=== PATIENT | female | born 1965 | race Caucasian/White ===

== ENCOUNTER 2022-11-20 17:23 | Emergency (ER) | payer MEDICARE, MEDICAID, SELFPAY ==
[2022-11-20 17:27] VITALS: BP 147/81; PULSE 73; RESP 20; TEMP 36.7; O2SAT 98; BMI 35.0
--- NOTE | 2022-11-20 17:53 | ED_ITS ---
HPI - Dizziness General Chief Complaint: Dizziness/Vertigo Stated Complaint: Fatigue, dizziness Time Seen by Provider: 11/20/22 17:35 History of Present Illness HPI Narrative: This 57-year-old female comes in reporting diffuse symptoms of dizziness over the past day or 2. She states that it is not specifically vertigo but feeling lightheadedness that she says is kind of a heavy feeling. So maybe it is a heavy headedness. She does arrive with normal vital signs. She has been taking Augmentin for a diagnosis of parotitis. She went to the clinic and reported swelling over left parotid gland. She states that she has had this several times in the past and was using sour jeevan to help express the flow of juices from the parotid gland. She has not had any imaging and did not have any fevers. She states that she is feeling better with regard to her parotid gland. She also reports taking 6 16 oz beers daily. She had her last drink about an hour and half prior to arrival. He does not report any symptoms of withdrawal and does not appear intoxicated. She knows that this is excessive and is planning to cut back. Related Data Home Medications Medication Instructions Recorded Confirmed albuterol sulfate 90 mcg/actuation inhalation 03/23/22 11/16/22 aerosol inhaler (Ventolin HFA) diazepam 5 mg tablet 5 mg PO BID 03/23/22 11/16/22 fluticasone 113 mcg-salmeterol 14 inh inhalation 03/23/22 11/16/22 mcg/actuation breath activated powdr risperidone 1 mg tablet 1 mg PO DAILY 03/23/22 11/16/22 risperidone 4 mg tablet 4 mg PO DAILY 03/23/22 11/16/22 hydroxyzine HCl 25 mg tablet 25 mg PO BID 11/20/22 11/20/22 Previous Rx's Medication Instructions Recorded amoxicillin 875 mg-potassium 1 tab PO Q12H 7 days #14 tabs 11/16/22 clavulanate 125 mg tablet Allergies Allergy/AdvReac Type Severity Reaction Status Date / Time contact metal agent Allergy Intermediate Rash Verified 11/20/22 17:31 Review of Systems Status of ROS: Reports: 10 or more systems reviewed and unremarkable except as noted in History and below Narrative: Constitutional: No fevers, no weight gain or loss. Eyes: No discharge. No vision changes. HENT: No congestion, no sore throat, no ear pain. Left parotid swelling has improved recently. Cardiovascular: No chest pain, no palpitations. Respiratory: No shortness of breath, no wheezes, no cough. Gastrointestinal: No abdominal pain, no vomiting, no diarrhea. Genitourinary: No dysuria, no hematuria. Musculoskeletal: Normal range of motion. Skin: No rashes, no pruritis. Neurological: No weakness, sensory change, speech change. Endo/Heme/Allergies: No bruising or bleeding. No polydipsia. Pysch: no suicidality, no anxiety, no insomnia. All other systems reviewed and are negative. [facility] Medical History (Updated 11/20/22 @ 18:50 by Dalton Rizzo MD) Parotitis ?K11.20 - Sialoadenitis, unspecified (ICD-10) Social History Smoking Status: Current every day smoker Exam Narrative: Exam Narrative: Constitutional: Well-developed, well-nourished, no acute distress. HEENT: Normocephalic, atraumatic. No swelling or hypertrophy of the left parotid gland. Neck: Normal range of motion. Nontender. Supple. Heart: Regular. No murmurs. Normal rate. Intact distal pulses. Lungs: Clear to auscultation. No chest discomfort. No wheezes, rhonchi, or rales. Abdomen: Normal bowel sounds. Nontender. No rebound tenderness. Genitalia: Deferred. Back: No midline tenderness. Normal range of motion. Extremities: Normal range of motion. No injury. Skin: Intact. No rash. Warm. No erythema or pallor. Neurologic: No altered sensation. No weakness. Alert and oriented. Psychiatric: No suicidality. No anxiety or depression. No insomnia. Nursing notes and vitals signs are reviewed. Const: Vital Signs, click to edit/add: Vital Signs - 24 hr 11/20/22 17:27 Temperature 98.1 F Pulse Rate [Pulse Oximeter] 73 Respiratory Rate 20 Blood Pressure [Ri ght Upper Arm] 147/81 H Pulse Oximetry 98 Oxygen Delivery Me thod Room Air Course Vital Signs Vital signs: Initial Vital Signs Temperature 98.1 F 11/20/22 17:27 Temperature Source Oral 11/20/22 17:27 Pulse Rate 73 11/20/22 17:27 Pulse Rhythm Regular 11/20/22 17:27 Respiratory Rate 20 11/20/22 17:27 Blood Pressure 147/81 H 11/20/22 17:27 Blood Pressure Mean 103 11/20/22 17:27 Blood Pressure Position Sitting 11/20/22 17:27 Pulse Oximetry 98 11/20/22 17:27 Oxygen Delivery Method Room Air 11/20/22 17:27 Vital Signs Temperature 98.1 F 11/20/22 17:27 Pulse Rate 73 11/20/22 17:27 Respiratory Rate 20 11/20/22 17:27 Blood Pressure 147/81 H 11/20/22 17:27 Pulse Oximetry 98 11/20/22 17:27 Oxygen Delivery Method Room Air 11/20/22 17:27 Temperature 98.1 F 11/20/22 17:27 Pulse Rate 73 11/20/22 17:27 Respiratory Rate 20 11/20/22 17:27 Blood Pressure 147/81 H 11/20/22 17:27 Pulse Oximetry 98 11/20/22 17:27 Oxygen Delivery Method Room Air 11/20/22 17:27 MDM - Dizziness MDM Narrative Medical decision making narrative: This patient comes in reporting a heavy feeling in her head over the past few days. She has been taking Augmentin actually for 4 days for a presumed parotid infection. She states that she is feeling better in that regard. She arrives with normal vital signs. Lab results are obtained and show reassuring findings also. She was concerned that her glucose might be high but it returns at 104 in a nonfasting state. Her white count is at around 11 which she states is typical for her. I stated that her symptoms may be adverse effects from taking Augmentin. Additionally she is drinking more alcohol than she should. I advised her to discontinue the Augmentin. I also recommended that she decrease her alcohol intake. She is okay to be discharged home. Lab Data Labs: Lab Results 11/20/22 Range/Units 18:02 WBC 11.16 H (4.50-11.00) K/uL RBC 4.64 (4.00-5.20) m/uL Hgb 14.9 (12.0-16.0) gm/dL Hct 42.3 (33.0-51.0) % MCV 91 (80-100) fL MCH 32 (26-34) pg MCHC 35 (32-36) gm/dL RDW Coeff of Misael 12.4 (11.5-15.5) % Plt Count 307 (140-440) K/uL Neut % (Auto) 55.2 (42.0-72.0) % Lymph % (Auto) 35.0 (20-44) % Gregg % (Auto) 7.9 (0.0-11.0) % Eos % (Auto) 1.4 (0.0-7.0) % Baso % (Auto) 0.3 (0.0-3.0) % Neut # (Auto) 6.20 (1.7-7.0) K/uL Lymph # (Auto) 3.90 H (0.90-2.90) K/uL Gregg # (Auto) 0.90 (0.00-0.90) K/UL Eos # (Auto) 0.20 (0.00-0.50) K/uL Baso # (Auto) 0.00 (0.00-0.30) K/uL Abs Immat Gran (auto) 0.00 (0.00-0.30) K/uL Imm/Tot Granulo (auto) 0.2 % Sodium 134 L (135-149) mmol/L Potassium 3.6 (3.6-5.1) mmol/L Chloride 101 (96-114) mmol/L Carbon Dioxide 24 (20-32) mmol/L Anion Gap 9 (7-15) mEq/L BUN 10 (7-30) mg/dL Creatinine 0.6 (0.5-1.5) mg/dL Estimated Creat Clear 118.41 Estimated GFR 106 ml/min Glucose 104 (60-115) mg/dL Calcium 10.0 (8.4-10.6) mg/dL ECG Data Attestation: I personally reviewed and interpreted this ECG as follows: Interpretation: Normal sinus rhythm. Rate is 68 beats per minute. There are no ST or T-wave abnormalities. Discharge Plan Discharge Clinical Impression: Adverse reaction to drug Patient Disposition: Home, Self-Care Condition: Stable Additional Instructions: Okay to discontinue Augmentin. Recommended to decrease alcohol intake also. Follow up with MD or return if worsening. Prescriptions: No Action diazepam 5 mg tablet 5 mg PO BID risperidone 4 mg tablet 4 mg PO DAILY risperidone 1 mg tablet 1 mg PO DAILY fluticasone propion-salmeterol 113-14 mcg/actuation aerosol powdr breath activated inhalation albuterol sulfate [Ventolin HFA] 90 mcg/actuation HFA aerosol inhaler inhalation amoxicillin-pot clavulanate 875-125 mg tablet 1 tab PO Q12H 7 Days Qty: 14 0RF hydroxyzine HCl 25 mg tablet 25 mg PO BID Follow Up/Referrals: Shazia Kern DO [Primary Care Provider] - Stand Alone Forms: [facility] Info Instructions
[2022-11-20 18:08] LABS: Basophils Percent Auto 0.3 % (0.0-3.0); Eosinophils Percent Auto 1.4 % (0.0-7.0); Hematocrit 42.3 % (33.0-51.0); Hemoglobin* 14.9 gm/dL (12.0-16.0); Immature Granulocytes Pct Auto 0.2 %; Mean Corpuscular HGB Conc 35 gm/dL (32-36); Mean Corpuscular Hemoglobin 32 pg (26-34); Mean Corpuscular Volume 91 fL (80-100); Monocytes Percent Auto 7.9 % (0.0-11.0); Neutrophils Percent Auto 55.2 % (42.0-72.0); Platelet Count* 307 K/uL (140-440); RDW Coefficient of Variation % 12.4 % (11.5-15.5); Red Blood Count 4.64 m/uL (4.00-5.20); White Blood Count* 11.16 K/uL (4.50-11.00)
[2022-11-20 18:11] LABS: Slide Review Reflex No
[2022-11-20 18:21] LABS: Chloride* 101 mmol/L (96-114); Potassium* 3.6 mmol/L (3.6-5.1); Sodium* 134 mmol/L (135-149)
[2022-11-20 18:24] LABS: Anion Gap 9 mEq/L (7-15); Blood Urea Nitrogen* 10 mg/dL (7-30); Carbon Dioxide* 24 mmol/L (20-32); Creatinine* 0.6 mg/dL (0.5-1.5); Est. Creatinine Clearance* 118.41; Estimated Glomerular Filt Rate 106 ml/min
[2022-11-20 18:25] LABS: Glucose* 104 mg/dL (60-115)
== END 2022-11-20 18:55 | disposition home or self-care (01) ==
PROVIDERS: Emergency Provider Emergency Medicine Emergency Medical Services; PCP Family Medicine
DX: R42 Dizziness and giddiness (principal); T36.0X5A Adverse effect of penicillins, initial encounter; T36.1X5A Adverse effect of cephalosporins and other beta-lactam antibiotics, initial encounter
CPT/HCPCS: 36415; 80048; 85025; 93005; 99284

== ENCOUNTER 2022-12-08 17:18 | Outpatient (CLI) | payer MEDICARE, MEDICAID, SELFPAY | END 2022-12-08 17:19 | disposition home or self-care (01) | LOC: NFLDREF 12-09 22:35 | PROVIDERS: PCP Family Medicine; Referring Provider Family Medicine; Visit Provider Physician Assistant | DX: R10.9 Unspecified abdominal pain (principal) | CPT/HCPCS: 87086 ==

== ENCOUNTER 2023-06-11 09:29 | Emergency (ER) | payer MEDICARE, MEDICAID, SELFPAY ==
[2023-06-11 09:45] VITALS: BP 113/76; PULSE 74; RESP 16; TEMP 36.6; O2SAT 98; BMI 35.6
--- NOTE | 2023-06-11 10:12 | XR_ITS ---
Patient: KATHERINE NUNEZ Facility:?[facility] Patient ID:?[id number] Site Patient ID:?[id number]. Site :?[id number] Study:?XRay-Chest Portable-06/11/2023 10:31:41 AM Ordering Physician:?Sekou Naranjo Final Report: INDICATION: Chest pain TECHNIQUE: Chest 1 views. COMPARISON: None. FINDINGS: Cardiovascular and mediastinum: Heart size and vasculature are normal in caliber and appearance. Lungs and pleural spaces: Lungs are clear. No sign of infiltrate. No sign of pleural effusion. No pneumothorax. Bones and soft tissues: No significant findings. IMPRESSION: No evidence of acute cardiopulmonary process. Dictated by Torito Larios MD @ 06/11/2023 10:38:35 AM Signed by:?Torito Larios MD @06/11/2023 10:38:35 AM (Electronic Signature)
[2023-06-11 10:38] LABS: Basophils Absolute Auto 0.03 K/uL (0.00-0.30); Basophils Percent Auto 0.3 % (0.0-3.0); Eosinophils Absolute Auto 0.12 K/uL (0.00-0.50); Eosinophils Percent Auto 1.3 % (0.0-7.0); Hematocrit 44.5 % (33.0-51.0); Hemoglobin* 15.2 gm/dL (12.0-16.0); Immature Granulocytes Abs Auto 0.02 K/uL (0.00-0.30); Immature Granulocytes Pct Auto 0.2 %; Lymphocytes Absolute Auto 2.95 K/uL (0.90-2.90); Lymphocytes Percent Auto 32.2 % (20-44); Mean Corpuscular HGB Conc 34 gm/dL (32-36); Mean Corpuscular Hemoglobin 31 pg (26-34); Mean Corpuscular Volume 91 fL (80-100); Monocytes Percent Auto 5.6 % (0.0-11.0); Neutrophils Absolute Auto 5.54 K/uL (1.7-7.0); Neutrophils Percent Auto 60.4 % (42.0-72.0); Platelet Count* 248 K/uL (140-440); RDW Coefficient of Variation % 12.5 % (11.5-15.5); Red Blood Count 4.87 m/uL (4.00-5.20); White Blood Count* 9.17 K/uL (4.50-11.00)
--- NOTE | 2023-06-11 10:42 | ED_ITS ---
HPI - Chest Pain General Chief Complaint: Chest Pain Stated Complaint: Chest pain, short of breath Time Seen by Provider: 06/11/23 10:06 History of Present Illness HPI narrative: Patient is a 57-year-old woman who comes in with a 1 hour history of chest pressure and fullness. She does smoke. She was able to belch upon arriving at the hospital and her symptoms resolved. Pressures felt in the midsternum with no diaphoresis nausea vomiting fevers or chills. Patient has had minimal s hortness of breath. Patient has had no other recent symptoms and otherwise feels like she has been feeling fairly well. EKG upon arrival shows questionable old myocardial infarction but no acute ST or T-wave changes upon my review. Related Data Home Medications Medication Instructions Recorded Confirmed albuterol sulfate 90 mcg/actuation inhalation 03/23/22 02/20/23 aerosol inhaler (Ventolin HFA) diazepam 5 mg tablet 5 mg PO BID 03/23/22 02/20/23 fluticasone 113 mcg-salmeterol 14 inh inhalation 03/23/22 02/20/23 mcg/actuation breath activated powdr risperidone 1 mg tablet 1 mg PO DAILY 03/23/22 02/20/23 risperidone 4 mg tablet 4 mg PO DAILY 03/23/22 02/20/23 hydroxyzine HCl 25 mg tablet 25 mg PO BID 11/20/22 02/20/23 lamotrigine 100 mg tablet 100 mg PO DAILY 06/11/23 06/11/23 Allergies Allergy/AdvReac Type Severity Reaction Status Date / Time contact metal agent Allergy Intermediate Rash Verified 02/20/23 09:40 aripiprazole [From Abilify] Allergy Verified 02/20/23 09:40 olanzapine [From Zyprexa] Allergy Verified 02/20/23 09:40 quetiapine [From Seroquel] Allergy Verified 02/20/23 09:40 Review of Systems Status of ROS Reports: 10 or more systems reviewed and unremarkable except as noted in History and below [facility] Medical History Parotitis ?K11.20 - Sialoadenitis, unspecified (ICD-10) Social History Smoking Status: Current every day smoker Exam Narrative Exam Narrative: EXAM GENERAL: Patient appears comfortable and well. EYES: No scleral icterus. LYMPH: No supraclavicular or cervical lymphadenopathy. SKIN: Visible skin seen during exam normal or with benign process only. EXT: No dependent lower extremity pedal edema. HEART: Regular rate and rhythm with no murmurs, rubs, or gallops. LUNGS: Clear to auscultation bilaterally with no crackles or wheezes. ABD: Soft, non tender, non distended. PSYCH: Good eye contact, speech is not pressured. Const Vital Signs, click to edit/add: Vital Signs - 24 hr 06/11/23 09:45 Temperature 97.9 F Pulse Rate [Pulse Oximeter] 74 Respiratory Rate 16 Blood Pressure [Right Upper Arm] 113/76 Pulse Oximetry 98 Oxygen Delivery Method Room Air Course Course ED Course: Patient seen examined. Troponin now and in 90 minutes ordered. CBC basic metabolic panel chest x-ray D-dimer pending. Vital Signs Vital signs: Initial Vital Signs Temperature 97.9 F 06/11/23 09:45 Temperature Source Temporal Artery Scan 06/11/23 09:45 Pulse Rate 74 06/11/23 09:45 Respiratory Rate 16 06/11/23 09:45 Blood Pressure 113/76 06/11/23 09:45 Blood Pressure Mean 88 06/11/23 09:45 Blood Pressure Position Sitting 06/11/23 09:45 Pulse Oximetry 98 06/11/23 09:45 Oxygen Delivery Method Room Air 06/11/23 09:45 Vital Signs Temperature 97.9 F 06/11/23 09:45 Pulse Rate 74 06/11/23 09:45 Respiratory Rate 16 06/11/23 09:45 Blood Pressure 113/76 06/11/23 09:45 Pulse Oximetry 98 06/11/23 09:45 Oxygen Delivery Method Room Air 06/11/23 09:45 Temperature 97.9 F 06/11/23 09:45 Pulse Rate 74 06/11/23 09:45 Respiratory Rate 16 06/11/23 09:45 Blood Pressure 113/76 06/11/23 09:45 Pulse Oximetry 98 06/11/23 09:45 Oxygen Delivery Method Room Air 06/11/23 09:45 MDM - Chest Pain MDM Narrative Medical decision making narrative: Patient is a 57-year-old woman who does have some cardiovascular risk factors who presents with chest pain clearing with a belch. She had no acute ST or T- wave changes on her EKG upon her arrival upon my review. A chest x-ray troponin x2 D-dimer electrolytes blood count are all normal. We did observe her for proximally 2 hours in the emergency room she had no signs of ectopy or return of symptoms. At this time I do believe she can be safely return to home. Differential diagnosis includes but not limited to unstable angina acute myocardial infarction aortic dissection pneumothorax gas pulmonary embolism. Lab Data Labs: Lab Results 06/11/23 Range/Units 10:18 WBC 9.17 (4.50-11.00) K/uL RBC 4.87 (4.00-5.20) m/uL Hgb 15.2 (12.0-16.0) gm/dL Hct 44.5 (33.0-51.0) % MCV 91 (80-100) fL MCH 31 (26-34) pg MCHC 34 (32-36) gm/dL RDW Coeff of Misael 12.5 (11.5-15.5) % Plt Count 248 (140-440) K/uL Neut % (Auto) 60.4 (42.0-72.0) % Lymph % (Auto) 32.2 (20-44) % Roane % (Auto) 5.6 (0.0-11.0) % Eos % (Auto) 1.3 (0.0-7.0) % Baso % (Auto) 0.3 (0.0-3.0) % Neut # (Auto) 5.54 (1.7-7.0) K/uL Lymph # (Auto) 2.95 H (0.90-2.90) K/uL Roane # (Auto) 0.50 (0.00-0.90) K/UL Eos # (Auto) 0.12 (0.00-0.50) K/uL Baso # (Auto) 0.03 (0.00-0.30) K/uL Abs Immat Gran (auto) 0.02 (0.00-0.30) K/uL Imm/Tot Granulo (auto) 0.2 % D-Dimer Quant (PE/DVT) 0.14 (0.00-0.50) ug/ml Sodium 136 (135-149) mmol/L Potassium 4.2 (3.6-5.1) mmol/L Chloride 106 (96-114) mmol/L Carbon Dioxide 26 (20-32) mmol/L Anion Gap 4 L (7-15) mEq/L BUN 9 (7-30) mg/dL Creatinine 0.6 (0.5-1.5) mg/dL Estimated Creat Clear 118.41 Estimated GFR 106 ml/min Glucose 107 (60-115) mg/dL Calcium 9.7 (8.4-10.6) mg/dL Total Bilirubin 0.5 (0.1-1.5) mg/dL AST 21 (12-35) U/L ALT 23 (4-35) U/L Alkaline Phosphatase 76 (40-150) U/L Troponin I < 0.01 L (0.01-0.04) ng/mL Total Protein 7.9 (6.0-8.3) g/dL Albumin 4.5 (3.3-5.0) g/dL Discharge Plan Discharge Clinical Impression: Chest pain Patient Disposition: Home, Self-Care Condition: Stable Instructions: Chest Pain (ED) Activity Level: No Restrictions Discharge Diet: Regular Prescriptions: No Action diazepam 5 mg tablet 5 mg PO BID risperidone 4 mg tablet 4 mg PO DAILY risperidone 1 mg tablet 1 mg PO DAILY fluticasone propion-salmeterol 113-14 mcg/actuation aerosol powdr breath activated inhalation albuterol sulfate [Ventolin HFA] 90 mcg/actuation HFA aerosol inhaler inhalation hydroxyzine HCl 25 mg tablet 25 mg PO BID lamotrigine 100 mg tablet 100 mg PO DAILY Follow Up/Referrals: Kimmy Francois PA-C [Primary Care Provider] - Stand Alone Forms: [facility] Info Instructions
[2023-06-11 10:48] LABS: Slide Review Reflex No
[2023-06-11 10:50] LABS: Chloride* 106 mmol/L (96-114)
[2023-06-11 10:51] LABS: Albumin* 4.5 g/dL (3.3-5.0); Potassium* 4.2 mmol/L (3.6-5.1); Sodium* 136 mmol/L (135-149)
[2023-06-11 10:53] LABS: Bilirubin Total* 0.5 mg/dL (0.1-1.5); Creatinine* 0.6 mg/dL (0.5-1.5); Est. Creatinine Clearance* 118.41; Estimated Glomerular Filt Rate 106 ml/min
[2023-06-11 10:54] LABS: Alanine Aminotransferase* 23 U/L (4-35); Alkaline Phosphatase* 76 U/L (40-150); Anion Gap 4 mEq/L (7-15); Aspartate Amino Transferase* 21 U/L (12-35); Blood Urea Nitrogen* 9 mg/dL (7-30); Calcium* 9.7 mg/dL (8.4-10.6); Carbon Dioxide* 26 mmol/L (20-32); Glucose* 107 mg/dL (60-115); Total Protein* 7.9 g/dL (6.0-8.3)
[2023-06-11 10:57] LABS: D Dimer Quantitative* 0.14 ug/ml (0.00-0.50)
[2023-06-11 11:12] LABS: Troponin I* < 0.01 ng/mL (0.01-0.04)
== END 2023-06-11 12:15 | disposition home or self-care (01) ==
PROVIDERS: Emergency Provider Internal Medicine; PCP Student in an Organized Health Care Education/Training Program
DX: R07.9 Chest pain, unspecified (principal)
CPT/HCPCS: 36415; 71045; 80053; 84484; 85025; 85379; 99283; 99284

== ENCOUNTER 2023-09-11 10:43 | Emergency (ER) | payer MEDICARE, MEDICAID, SELFPAY ==
[2023-09-11 10:46] VITALS: BP 154/76; PULSE 76; RESP 16; TEMP 36.7; O2SAT 97; BMI 35.6
--- NOTE | 2023-09-11 11:07 | ED.FEMALEGU ---
HPI - Female Genitourinary General Time Seen by Provider: 11:07 Date Seen: 09/11/23 Chief complaint: Urogenital Problems, Female Stated complaint: bleeding concerns Time Seen by Provider: 09/11/23 11:06 Source: patient and RN notes reviewed Mode of arrival: ambulatory Limitations: no limitations History of Present Illness HPI Narrative: This 58-year-old female is coming in with concern of some blood noted on her undergarments. She has a feminine urinary protection on in just noted some dried blood on it this morning. She did go to the bathroom, noticed no blood on the toilet paper, could not tell the source of the bleeding. She does admit that she has taken 3 doses of ibuprofen overnight due to dental pain. She did have 2 beers last night. She has been postmenopausal for about 6 years. No urinary symptoms such as dysuria frequency, no prior blood in the urine. She has had no blood in her stools. She now maybe feels some pelvic pressure. Her primary care is at [facility] but states she has not been there for a while. She has had a history of sialadenitis/parotits, history hyponatremia. Patient is a current smoker. Related Data Home Medications ?Medication ?Instructions ?Recorded ?Confirmed albuterol sulfate 90 mcg/actuation 2 puff inhalation 03/23/22 06/28/23 aerosol inhaler (Ventolin HFA) diazepam 5 mg tablet 5 mg PO BID 03/23/22 09/11/23 fluticasone 113 mcg-salmeterol 14 1 inh inhalation 03/23/22 06/28/23 mcg/actuation breath activated powdr risperidone 1 mg tablet 1 mg PO DAILY 03/23/22 09/11/23 risperidone 4 mg tablet 4 mg PO DAILY 03/23/22 09/11/23 hydroxyzine HCl 25 mg tablet 25 mg PO BID 11/20/22 09/11/23 lamotrigine 100 mg tablet 100 mg PO DAILY 06/11/23 09/11/23 multivitamin 1 tab PO DAILY 09/11/23 09/11/23 Previous Rx's ?Medication ?Instructions ?Recorded penicillin V potassium 500 mg 500 mg PO TID #30 tabs 09/11/23 tablet Allergies Allergy/AdvReac Type Severity Reaction Status Date / Time contact metal agent Allergy Intermediate Rash Verified 06/28/23 14:18 aripiprazole [From Abilify] Allergy Verified 06/28/23 14:18 olanzapine [From Zyprexa] Allergy Verified 06/28/23 14:18 quetiapine [From Seroquel] Allergy Verified 06/28/23 14:18 Review of Systems Status of ROS: Reports: 6 or more systems reviewed and unremarkable except as noted in History and below [facility] Medical History Parotitis ?K11.20 - Sialoadenitis, unspecified (ICD-10) Social History Smoking Status: Current every day smoker Exam Const: Vital Signs, click to edit/add: Vital Signs - 24 hr 09/11/23 10:46 Temperature 98.1 F Pulse Rate [Pulse Oximeter] 76 Respiratory Rate 16 Blood Pressure [Ri ght Upper Arm] 154/76 H Pulse Oximetry 97 Oxygen Delivery Me thod Room Air This 58-year-old female is ambulatory into the ED of her own accord. She is alert, interactive, no apparent distress. Face atraumatic, sclera clear, conjugate gaze. Neck supple, no masses or adenopathy. Lungs are clear, good air entry, no tachypnea, no accessory muscle use. CV regular rate and rhythm, no murmur, normal S1-S2, no S3-S4. Abdomen is obese but soft, nontender. Cannot feel any masses or organomegaly but body habitus may preclude this examination. No inguinal masses, external genitalia appear normal, no evidence of bleeding, C3 small spots of dried red blood on her pad. I do not see any external reasons for bleeding from the anus, no hemorrhoids noted. Perineum without any evidence of source. Speculum was inserted, could not get the cervix into view as patient was in the bed but the vaginal vault is without any evidence of drainage or discharge. Bimanual exam attempted, vaginal vault normal, cervix did not palpate abnormal, nontender. Could not feel any pelvic organomegaly, body habitus made examination difficult. Documenting provider has reviewed patient's vital signs: yes Course Course ED Course: Patient and I discussed the need for pelvic ultrasound, it is unclear where the source of the blood is coming from. Certainly could be urinary, need to rule out postmenopausal bleeding or spotting. Does not seem to be rectal in nature or hemorrhoidal. Will get full complement of labs, obtain a pelvic ultrasound as well as urinalysis. Reevaluation(s) Time of Reevaluation #1: 12:50 Reevaluation #1: Have reviewed the pelvic ultrasound report and provided patient copy of this. She still should be considered for an endometrial biopsy as the source of her bleeding is not clear. There certainly may be something externally that I just did not see, she will need to continue to monitor this. We did discuss her sodium being mildly low at 129, this is not hospitalize double but we will give her 500 mL normal saline. She does state that she drinks a lot of fluids during the day, not necessarily water but she does drink a lot of fluids. She does admit that she does drink beer at night, we did discuss that this could contribute. Her concern that she was going to bleed out because she used ibuprofen last night is not a problem, we have reviewed this. No evidence of any active bleeding, hemoglobin is good, have reassured her of this. She will have an IV, she will get 500 mL normal saline and then plan for discharge to home for further outpatient follow up and evaluation. Time of Reevaluation #2: 13:47 Reevaluation #2: Patient has completed IV fluids. She did request antibiotics for her dental issue, states she does have a follow-up appointment with a dentist. She feels like the gum around the tooth might be a little swollen but has not noticed an abscess pocket. It does sound as is she has had abscessed teeth before. It is her left front tooth. This tooth has chronic rotation, indeed the base of gumline looks a little erythematous but there is no fluctuance. The tooth seems to have normal coloration. Vital Signs Vital signs: Initial Vital Signs Temperature 98.1 F 09/11/23 10:46 Temperature Source Temporal Artery Scan 09/11/23 10:46 Pulse Rate 76 09/11/23 10:46 Respiratory Rate 16 09/11/23 10:46 Blood Pressure 154/76 H 09/11/23 10:46 Blood Pressure Mean 102 09/11/23 10:46 Blood Pressure Position Sitting 09/11/23 10:46 Pulse Oximetry 97 09/11/23 10:46 Oxygen Delivery Method Room Air 09/11/23 10:46 Vital Signs Temperature 98.1 F 09/11/23 10:46 Pulse Rate 76 09/11/23 10:46 Respiratory Rate 16 09/11/23 10:46 Blood Pressure 154/76 H 09/11/23 10:46 Pulse Oximetry 97 09/11/23 10:46 Oxygen Delivery Method Room Air 09/11/23 10:46 Temperature 98.1 F 09/11/23 10:46 Pulse Rate 76 09/11/23 10:46 Respiratory Rate 16 09/11/23 10:46 Blood Pressure 154/76 H 09/11/23 10:46 Pulse Oximetry 97 09/11/23 10:46 Oxygen Delivery Method Room Air 09/11/23 10:46 Medications Administered Medications: Discontinued Medications Generic Name Dose Route Start Last Admin Trade Name Freq PRN Reason Stop Dose Admin Sodium Chloride 500 mls @ 500 mls/hr 09/11/23 12:46 09/11/23 13:00 0.9 % Sodium Chloride 500 Ml IV 09/11/23 13:45 1,000 mls/hr .Q1H ONE Administration MDM - Female Genitourinary Lab Data Attestation: I reviewed the patient's lab results. Labs: Lab Results 09/11/23 09/11/23 Range/Units 11:20 11:25 WBC 10.84 (4.50-11.00) K/uL RBC 4.32 (4.00-5.20) m/uL Hgb 13.9 (12.0-16.0) gm/dL Hct 39.4 (33.0-51.0) % MCV 91 (80-100) fL MCH 32 (26-34) pg MCHC 35 (32-36) gm/dL RDW Coeff of Misael 12.1 (11.5-15.5) % Plt Count 250 (140-440) K/uL Neut % (Auto) 58.3 (42.0-72.0) % Lymph % (Auto) 32.8 (20-44) % [place] % (Auto) 6.5 (0.0-11.0) % Eos % (Auto) 1.7 (0.0-7.0) % Baso % (Auto) 0.5 (0.0-3.0) % Neut # (Auto) 6.32 (1.7-7.0) K/uL Lymph # (Auto) 3.56 H (0.90-2.90) K/uL [place] # (Auto) 0.70 (0.00-0.90) K/UL Eos # (Auto) 0.18 (0.00-0.50) K/uL Baso # (Auto) 0.05 (0.00-0.30) K/uL Abs Immat Gran (auto) 0.02 (0.00-0.30) K/uL Imm/Tot Granulo (auto) 0.2 % INR 0.88 L (0.91-1.10) APTT 42 H (23-33) Seconds Sodium 129 L (135-149) mmol/L Potassium 4.1 (3.6-5.1) mmol/L Chloride 99 (96-114) mmol/L Carbon Dioxide 21 (20-32) mmol/L Anion Gap 9 (7-15) mEq/L BUN 5 L (7-30) mg/dL Creatinine 0.6 (0.5-1.5) mg/dL Estimated Creat Clear 117.02 Estimated GFR 105 ml/min Glucose 98 (60-115) mg/dL Calcium 8.8 (8.4-10.6) mg/dL Total Bilirubin 0.3 (0.1-1.5) mg/dL AST 20 (12-35) U/L ALT 18 (4-35) U/L Alkaline Phosphatase 72 (40-150) U/L Total Protein 7.1 (6.0-8.3) g/dL Albumin 4.3 (3.3-5.0) g/dL Urine Color Yellow (Yellow) Urine Appearance Clear (Clear) Urine pH 6.0 (5.0-8.5) Ur Specific [place] <= 1.005 (1.000-1.030) Urine Protein Negative (Negative) Urine Glucose (UA) Negative (Negative) Urine Ketones Negative (Negative) Urine Blood 1+ A (Negative) Urine Nitrite Negative (Negative) Urine Bilirubin Negative (Negative) Urine Urobilinogen 0.2 (0.2-1.0) Ur Leukocyte Esterase Negative (Negative) Urine RBC 0-2 (0-2) Urine WBC 0-2 (0-5) Ur Squamous Epith Cells None (None-Few) Urine Bacteria None (None) Imaging Data US pelvis: Attestation: I have reviewed the pertinent imaging results. Radiologist's impression: Patient: KATHERINE NUNEZ Facility:?[facility] Patient ID:?[id number] Site Patient ID:?[id number]. Site :?[id number] Study:?US-Pelvis PELVIS TA & TV-09/11/2023 12:14:19 PM Ordering Physician:?Adela Dash Final Report: INDICATION: Postmenopausal bleeding. COMPARISON: None available. TECHNIQUE: Transabdominal and endovaginal grayscale and color doppler pelvic ultrasound. FINDINGS: Uterus: Measures 4.9 x 3.8 x 7.2cm. Heterogeneous echotexture. Possible 1 cm subserosal anterior uterine body fibroid. Nabothian cysts are noted within the regions of the internal and external os of the uterine cervix. Please note that US is insensitive for detection of epithelial lesions of the cervix, compared to physical examination. Endometrial stripe: Measures 2mm. Trace fluid within the endometrial cavity. Right Ovary: Measures 2.1 x 1.2 x 2.5cm. Morphologically normal. Spectral Doppler demonstrates normalarterial and venousblood flow. Left Ovary: Measures 1.9 x 1.0 x 2.7cm. Morphologically normal. Spectral Doppler demonstrates normalarterial and venousblood flow. Pelvic fluid: No significant pelvic ascites. Small volume free fluid within physiologic limits of normal. IMPRESSION: No abnormal thickening of the endometrial stripe to explain postmenopausal bleeding. Trace anechoic fluid within the endometrial cavity. Clinical follow-up is suggested. If postmenopausal bleeding recurs or persists then further evaluation is recommended. Dictated by Kobi Momin MD @ 09/11/2023 12:39:58 PM (Electronic Signature) Discharge Plan Discharge Clinical Impression: Bleeding, Hyponatremia, Pain, dental Patient Disposition: Home, Self-Care Condition: Stable Instructions: Dental Abscess (ED), Hyponatremia (ED) Additional Instructions: Start oral antibiotics and take as prescribed. Need to follow up with the dentist, keep the appointment that you state you have. Try to minimize your total volume intake of fluids and decrease alcohol intake. Need to have your sodium rechecked in the next week or so in clinic, please schedule a clinic followup. You also need to follow up in clinic to consider having a endometrial biopsy done, re-evaluation of the perineum to see if source of bleeding can be found. If the bleeding it does become have year, have concerns that you are having excessive bleeding, please seek re-evaluation in the interim. Activity Level: Activity as Tolerated Prescriptions: New penicillin V potassium 500 mg tablet 500 mg PO TID Qty: 30 0RF No Action diazepam 5 mg tablet 5 mg PO BID risperidone 4 mg tablet 4 mg PO DAILY risperidone 1 mg tablet 1 mg PO DAILY fluticasone propion-salmeterol 113-14 mcg/actuation aerosol powdr breath activated 1 inh inhalation albuterol sulfate [Ventolin HFA] 90 mcg/actuation HFA aerosol inhaler 2 puff inhalation hydroxyzine HCl 25 mg tablet 25 mg PO BID lamotrigine 100 mg tablet 100 mg PO DAILY multivitamin Tablet 1 tab PO DAILY Follow Up/Referrals: Kimmy Francois PA-C [Primary Care Provider] - Stand Alone Forms: edPULSE Info Instructions
--- NOTE | 2023-09-11 11:14 | CRLHL7_ITS ---
For Patients: As a result of the Century Cures Act, medical imaging exams and procedure reports are released immediately into your electronic medical record. You may view this report before your referring provider. If you have questions, please contact your health care provider. INDICATION: Postmenopausal bleeding. COMPARISON: None available. TECHNIQUE: Transabdominal and endovaginal grayscale and color doppler pelvic ultrasound. FINDINGS: Uterus: Measures 4.9 x 3.8 x 7.2cm. Heterogeneous echotexture. Possible 1 cm subserosal anterior uterine body fibroid. Nabothian cysts are noted within the regions of the internal and external os of the uterine cervix. Please note that US is insensitive for detection of epithelial lesions of the cervix, compared to physical examination. Endometrial stripe: Measures 2mm. Trace fluid within the endometrial cavity. Right Ovary: Measures 2.1 x 1.2 x 2.5cm. Morphologically normal. Spectral Doppler demonstrates normalarterial and venousblood flow. Left Ovary: Measures 1.9 x 1.0 x 2.7cm. Morphologically normal. Spectral Doppler demonstrates normalarterial and venousblood flow. Pelvic fluid: No significant pelvic ascites. Small volume free fluid within physiologic limits of normal. IMPRESSION: No abnormal thickening of the endometrial stripe to explain postmenopausal bleeding. Trace anechoic fluid within the endometrial cavity. Clinical follow-up is suggested. If postmenopausal bleeding recurs or persists then further evaluation is recommended. Dictated by Kobi Momin MD @ 09/11/2023 12:39:58 PM (Electronically Signed)
[2023-09-11 11:46] LABS: Basophils Absolute Auto 0.05 K/uL (0.00-0.30); Basophils Percent Auto 0.5 % (0.0-3.0); Eosinophils Absolute Auto 0.18 K/uL (0.00-0.50); Eosinophils Percent Auto 1.7 % (0.0-7.0); Hematocrit 39.4 % (33.0-51.0); Hemoglobin* 13.9 gm/dL (12.0-16.0); Immature Granulocytes Abs Auto 0.02 K/uL (0.00-0.30); Immature Granulocytes Pct Auto 0.2 %; Lymphocytes Absolute Auto 3.56 K/uL (0.90-2.90); Lymphocytes Percent Auto 32.8 % (20-44); Mean Corpuscular HGB Conc 35 gm/dL (32-36); Mean Corpuscular Hemoglobin 32 pg (26-34); Mean Corpuscular Volume 91 fL (80-100); Monocytes Percent Auto 6.5 % (0.0-11.0); Neutrophils Absolute Auto 6.32 K/uL (1.7-7.0); Neutrophils Percent Auto 58.3 % (42.0-72.0); Platelet Count* 250 K/uL (140-440); RDW Coefficient of Variation % 12.1 % (11.5-15.5); Red Blood Count 4.32 m/uL (4.00-5.20); White Blood Count* 10.84 K/uL (4.50-11.00)
[2023-09-11 11:55] LABS: Slide Review Reflex No
[2023-09-11 11:56] LABS: Albumin* 4.3 g/dL (3.3-5.0); Chloride* 99 mmol/L (96-114)
[2023-09-11 11:57] LABS: Appearance Urine Clear (Clear); Bilirubin Urine Negative (Negative); Blood Urine 1+ (Negative); Color Urine Yellow (Yellow); Glucose Urine Negative (Negative); Ketones Urine Negative (Negative); Leukocyte Esterase Urine Negative (Negative); Nitrite Urine Negative (Negative); Protein Urine Negative (Negative); Specific Gravity Urine <= 1.005 (1.000-1.030); Urobilinogen Urine 0.2 (0.2-1.0)
[2023-09-11 11:57] LABS: Potassium* 4.1 mmol/L (3.6-5.1); Sodium* 129 mmol/L (135-149)
[2023-09-11 11:58] LABS: RBC Urine 0-2 (0-2); WBC Urine 0-2 (0-5)
[2023-09-11 11:59] LABS: Anion Gap 9 mEq/L (7-15); Aspartate Amino Transferase* 20 U/L (12-35); Bilirubin Total* 0.3 mg/dL (0.1-1.5); Carbon Dioxide* 21 mmol/L (20-32); Creatinine* 0.6 mg/dL (0.5-1.5); Est. Creatinine Clearance* 117.02; Estimated Glomerular Filt Rate 105 ml/min; INR 0.88 (0.91-1.10); Prothrombin Time 12.5 Seconds; Total Protein* 7.1 g/dL (6.0-8.3)
[2023-09-11 12:00] LABS: Alanine Aminotransferase* 18 U/L (4-35); Alkaline Phosphatase* 72 U/L (40-150); Blood Urea Nitrogen* 5 mg/dL (7-30); Calcium* 8.8 mg/dL (8.4-10.6); Glucose* 98 mg/dL (60-115); Partial Thromboplastin Time* 42 Seconds (23-33)
[2023-09-11] MEDS: 0.9 % SODIUM CHLORIDE 500 ML 500 ML 1000 ML IV (13:00)
[2023-09-11 14:11] VITALS: BP 138/77; PULSE 67; RESP 16; O2SAT 97
== END 2023-09-11 14:19 | disposition home or self-care (01) ==
PROVIDERS: Emergency Provider Family Medicine; PCP Student in an Organized Health Care Education/Training Program
DX: N93.9 Abnormal uterine and vaginal bleeding, unspecified (principal); E87.1 Hypo-osmolality and hyponatremia; K08.89 Other specified disorders of teeth and supporting structures; Z51.81 Encounter for therapeutic drug level monitoring
CPT/HCPCS: 36415; 76830; 76856; 80053; 81001; 85025; 85610; 85730; 99284; J7030